=== PATIENT | male | born 1975 | race Caucasian/White ===

== ENCOUNTER 2017-08-22 19:52 | Emergency (ER) | payer OTHER ==
[~2017-08-22] VITALS: Ht 188 cm; Wt 80.2 kg
[2017-08-22 19:55] VITALS: TEMP 36.7; Ht 188 cm; Wt 80.2 kg
[2017-08-22 20:42] VITALS: BP 128/92; PULSE 77; O2SAT 95
--- NOTE | 2017-08-23 00:28 | EMERGENCY ROOM VISIT NOTE ---
History First contact with patient: 20:00 Chief Complaint: LACERATION/CUT (SUT/DERMABOND) Stated Complaint: R MIDDLE FINGER ON R HAND LACERATION Nursing Triage Summary: c/o cut to right hand, middle finger while cleaning dishes at work tonight. was treated by EMS and told to come here to see if further care was needed. bandage in place in traige, dry and intact. cut not visualized in triage. History of Present Illness The patient is a 42 year old male who presents to the Emergency Room with complaints of a laceration to the tip of his right third finger. The injury happened at work while cleaning a grill. The patient denies any significant bleeding, and rates his discomfort a 1 out of 10. Tetanus immunization is up-to -date. The patient is right-hand dominant. Review of Systems 6 system review was performed and was negative except for pertinent positives and negatives as indicated in history of present illness Past Medical/Surgical History Medical Problems: (1) No significant past medical history Surgical Problems: (1) No history of previous surgery Family History Unremarkable Social History Smoking Status: Never Smoker Alcohol Use: occasionally Marital Status: single Occupation Status: employed Physical Exam Vital Signs Date Time Temp Pulse Resp B/P (MAP) Pulse Ox O2 Delivery O2 Flow Rate FiO2 08/22/17 20:42 77 18 128/92 95 08/22/17 19:55 36.7 77 18 111/75 97 Room Air Physical Exam CONSTITUTIONAL: Healthy and well nourished. Alert and oriented X 3 with positive affect. HEENT: Normocephalic, atraumatic. Pupils equal, round and reactive. MUSCULOSKELETAL: Examination shows a 0.5 cm laceration to the distal fingertip. It is perfectly approximated with minimal bleeding. There is no laceration of the nail plate. Capillary refill is less than 2 seconds. INTEGUMENTARY: No rash or other significant dermatologic conditions noted. NEUROLOGIC: No focal neurologic deficits noted. Right third fingertip is sensory intact. Medical Decision & Procedures ED Course Patient history and physical exam were performed. Nurse's notes were reviewed. Vital signs were reviewed and were normal. I did discuss primary closure with sutures, versus allowing the wound to heal on its own by secondary intention. I discussed the risks of infection and poor wound healing with conservative treatment. After discussion and shared medical decision making, the patient elected conservative management. The wound was cleansed and covered with a bacitracin Coban dressing. He was encouraged to keep the wound clean and covered with an antibiotic ointment and dressing until it heals. Ice and elevation, along with ibuprofen and Tylenol as needed for pain. He was instructed to return for any signs of developing infection. The patient was happy with plan of care, voiced understanding of all discharge instructions, and denied any significant discomfort at the conclusion of my exam. Medical Decision Medication Reconcilliation Current Medication List: was personally reviewed by me Blood Pressure Screening Patient's blood pressure: Normal blood pressure Impression Primary Impression: Laceration of right middle finger Additional Impression: Work related injury Departure Information Dispostion Home / Self-Care Condition GOOD Forms HOME CARE DOCUMENTATION FORM, IMPORTANT VISIT INFORMATION Patient Instructions My [facility] Additional Instructions Keep wound clean and covered with antibiotic ointment and dressing until it heals. Intermittently apply ice and elevate the hand as needed for swelling. Ibuprofen or Tylenol as needed for pain. Return for any signs of infection. FOR WORK: Must keep wound clean, covered and dry until it heals (approximately 7 days). Problem Qualifiers Primary Impression: Laceration of right middle finger Encounter type: initial encounter Damage to nail status: without damage Foreign body presence: without foreign body Qualified Codes: S61.212A - Laceration without foreign body of right middle finger without damage to nail, initial encounter
== END 2017-08-22 20:42 | disposition home or self-care (01) ==
LOC: C.EDB 19:54 → C.EDD 20:42
DX: S61.212A Laceration without foreign body of right middle finger without damage to nail, initial encounter (principal); X58.XXXA Exposure to other specified factors, initial encounter; Y93.G1 Activity, food preparation and clean up; Y99.0 Civilian activity done for income or pay